=== PATIENT | female | born 1955 | race Caucasian/White ===

== ENCOUNTER 2019-10-24 07:14 | Outpatient (CLI) | payer OTHER ==
[2019-10-24 14:04] LABS: #Eosinphils 0.1 thou/uL (0.0-0.7); #Lymphocytes 2.3 thou/uL (1.20-3.40); #Monocytes 0.5 thou/uL (0.11-0.59); #Neutrophils 5.6 thou/uL (1.40-6.50); %Basophils 0.5 % (0.0-1.0); %Eosinophils 1.5 % (0.0-10.0); %Lymphocytes 26.6 % (21.0-51.0); %Monocytes 6.1 % (0.0-10.0); %Neutrophils 65.3 % (42.0-75.0); Hemoglobin 13.8 g/dL (12.0-16.0); Mean Corpuscular HGB CONC 33.8 g/dL (32.0-36.0); Mean Corpuscular Hemoglobin 32.1 pg (27.0-31.0); Mean Corpuscular Volume 94.7 fL (78.0-98.0); Mean Platelet Volume 7.8 fL (7.4-10.4); Platelet Count 287 thou/uL (130-400); White Blood Cell (WBC) Count 8.6 thou/uL (4.8-10.8)
[2019-10-24 14:12] LABS: Anion Gap 15 mmol/L (10-20); BUN (Urea Nitrogen) 10 mg/dL (9.8-20.1); Calc. Creatinine Clearance 0 mL/min (70-130); Calcium 9.9 mg/dL (7.8-10.44); Carbon Dioxide 26 mmol/L (23-31); Chloride 103 mmol/L (98-107); Estimated GFR-MDRD Greater than 90; Glucose 103 mg/dL (80-115); Potassium 4.5 mmol/L (3.5-5.1); Sodium 139 mmol/L (136-145)
[2019-10-24 14:20] LABS: Bacteria/HPF None Seen HPF (None Seen); Bilirubin Negative (Negative); Blood, Urine Negative (Negative); Clarity Clear (Clear); Glucose, Urine (Dipstick) Normal (Negative); Leukocyte Negative Leu/uL (Negative); Nitrite Negative (Negative); Protein, Urine (Dipstick) Negative (Neg-Trace); RBC/HPF 0-3 HPF (0-3); Squamous Epithelial None Seen HPF (0-3); Urobilinogen Normal mg/dL (Less than 2); WBC/HPF None Seen HPF (0-3)
[2019-10-24 14:26] LABS: Prothrombin Time 13.4 sec (12.0-14.7)
[2019-10-25 11:34] LABS: SARS-CoV-2 MS2 Positive; SARS-CoV-2 N Gene Negative; SARS-CoV-2 S Gene Negative; SARS-CoV-2 orf1ab Negative
== END 2019-10-24 07:15 | disposition home or self-care (01) ==
LOC: LABBT 07:14
PROVIDERS: ATTEND Orthopaedic Surgery
DX: Z01.818 Encounter for other preprocedural examination (principal); Z11.59 Encounter for screening for other viral diseases; T84.018A Broken internal joint prosthesis, other site, initial encounter
CPT/HCPCS: 80048; 81001; 85025; 85610; 87635; U0003

== ENCOUNTER 2019-10-24 11:15 | Inpatient (IN) | payer OTHER ==
[2019-10-23 12:41] VITALS: BMI 32.2
[2019-10-28] MEDS ORDERED: Sodium Chloride 0.9% 100 ML ONE (08:08)
[2019-10-28] MEDS ORDERED: Vancomycin 1 GM/200 ML BAG ONE (08:08)
[2019-10-28] MEDS ORDERED: Tranexamic Acid 1,000 MG/10 ML VIAL ONE (08:08)
[2019-10-28] MEDS ORDERED: Fentanyl 100 MCG/2 ML VIAL ONE ×2 (09:14→10:35)
[2019-10-28] MEDS ORDERED: Midazolam HCl 2 mg/2 ml Vial ONE (09:14)
[2019-10-28] MEDS ORDERED: Glycopyrrolate 0.2 MG/ML 5 ML SYRINGE ONE (10:04)
[2019-10-28] MEDS ORDERED: EPHEDRINE 25 MG/5 ML SYRINGE ONE (10:04)
[2019-10-28] MEDS ORDERED: Succinylcholine Chloride 20 MG/ML 10 ml SYRINGE FS ONE (10:04)
[2019-10-28] MEDS ORDERED: Ropivacaine 0.2% HCl/PF (40 MG/20 ML VIAL) ONE (10:04)
[2019-10-28] MEDS ORDERED: Dexamethasone 20 MG/5 ML VIAL ONE (10:04)
[2019-10-28] MEDS ORDERED: PHENYLEPHRINE-NS 100 MCG/ML 10 ML SYRINGE ONE (10:04)
[2019-10-28] MEDS ORDERED: Ondansetron PF 4 MG/2 ML Vial ONE (10:04)
[2019-10-28] MEDS ORDERED: Bupivacaine HCl 0.5%/Epinephrine 1:200,000/PF 30 ml Vial ONE (10:04)
[2019-10-28] MEDS ORDERED: PROPOFOL 200 MG/20 ML VIAL ONE (10:04)
[2019-10-28] MEDS ORDERED: Zolpidem Tartrate 5 MG TAB PO PRN ×2 (10:38→10:49)
[2019-10-28] MEDS ORDERED: HYDROcodone/Acetaminophen 10/325 mg Tablet PO PRN ×2 (10:38)
[2019-10-28] MEDS ORDERED: Ropivacaine HCl/PF 250 ML in Premix Bag 1 BAG NERVE BLCK SCH (10:38)
[2019-10-28] MEDS ORDERED: Promethazine HCl 25 MG/ML VIAL IM PRN ×3 (10:38→13:15)
[2019-10-28] MEDS ORDERED: traMADol HCl 50 MG TAB PO PRN (10:38)
[2019-10-28] MEDS ORDERED: Fentanyl 100 MCG/2 ML VIAL SLOW IVP PRN (10:39)
[2019-10-28] MEDS ORDERED: Ondansetron PF 4 MG/2 ML Vial IVP PRN (10:49)
[2019-10-28] MEDS ORDERED: diphenhydrAMINE 25 MG CAP PO PRN (10:49)
[2019-10-28] MEDS ORDERED: Acetaminophen 325 MG TAB PO PRN (10:49)
[2019-10-28] MEDS ORDERED: Promethazine HCl 25 MG/ML VIAL SLOW IVP PRN (13:15)
[2019-10-28] MEDS ORDERED: Ondansetron HCl/PF 4 MG/2 ML Vial IVP PRN (13:15)
[2019-10-28] MEDS ORDERED: Ketorolac Tromethamine 30 MG/ML VIAL IVP PRN (13:15)
--- NOTE | 2019-10-28 15:23 | RAD ---
XR Knee Rt 2 View: 10/28/2019 10:50 AM CLINICAL INDICATION: Right total knee prosthesis COMPARISON: Radiographs dated October 08, 2019 FINDINGS: Bones: No acute fracture is demonstrated. Joints: Since the comparison examination there has been revision of the right total knee prosthesis. There is been interval placement of a constrained right total knee prosthetic components. The prosthetic components project in the expected position. There are scattered intra-articular and peria rticular soft tissue gas. Small amount of Omnipaque material is seen within the posterior aspect of the right knee joint possibly related to prior polymethylmethacrylate. This was present on the compar rosa maria exam. Soft Tissue: There is soft tissue swelling involving the right knee.. IMPRESSION: Postoperative right knee.
[2019-10-28] MEDS: Ketorolac Tromethamine 30 MG/ML VIAL IVP SCH ×2 (15:24→21:24)
[2019-10-28] MEDS: Sodium Chloride 0.9% 1,000 ML IV SCH ×2 (15:25→20:59)
[2019-10-28] MEDS: CEFAZOLIN 2 GM in Premix Bag 1 BAG IVPB SCH ×2 (15:25→23:17)
[2019-10-28] MEDS: Ferrous Gluconate 324 MG TAB PO SCH (20:58)
[2019-10-28] MEDS: Senokot S 8.6-50 MG TAB PO SCH (20:59)
[2019-10-28] MEDS: Aspirin 81 mg Enteric Coated Tablet PO SCH (21:24)
--- NOTE | 2019-10-29 01:48 | CON ---
DATE OF CONSULTATION: 10/28/2019 TIME OF ASSESSMENT: 1800 hours. REASON FOR CONSULTATION: Medical management. HISTORY OF PRESENT ILLNESS: Ms. Rodriguez is a 63-year-old woman, who is status post a total right knee replacement done earlier today, who has been referred for medical management. The patient has a history of anxiety and depression. She is otherwise healthy and without any other comorbidities. She states she has been feeling well since her surgery. She is currently eating dinner and denies having any nausea or vomiting. No abdominal pain. Has not had any chest pain, palpitations, or shortness of breath. Denies any recent fevers, chills, or sweats. Overall, she states she feels very good. Her pain is under good control. REVIEW OF SYSTEMS: All other review of systems are negative. PAST MEDICAL HISTORY: 1. Anxiety. 2. Depression. SURGICAL HISTORY: 1. Left knee replacement in January 2017. 2. Right knee replacement in 2003. 3. Colonoscopy in March 2019. 4. Total right knee replacement earlier today, October 2019. FAMILY HISTORY: Her father was diagnosed with a stroke and is . Her mother is alive and has diabetes. SOCIAL HISTORY: The patient denies any tobacco use, alcohol consumption, or illicit drug use. ALLERGIES: NO KNOWN DRUG ALLERGIES. CURRENT MEDICATIONS: 1. Naproxen. 2. Tylenol. 3. Venlafaxine. PHYSICAL EXAMINATION: GENERAL: The patient appears well developed, well nourished, is in no acute distress. VITAL SIGNS: Temperature 97.9, pulse 99, respirations 18, O2 saturation 97% on room air, and blood pressure 108/70. HEENT: Normocephalic and atraumatic. Pupils are equal, round, and reactive to light. Sclerae without icterus. Oropharynx is clear. NECK: Supple. No lymphadenopathy. LUNGS: Clear to auscultation bilaterally without wheezes, rales, or rhonchi. CARDIAC: Regular rate and rhythm without audible murmurs, rubs, or gallops. ABDOMEN: Soft, nontender, nondistended. Normoactive bowel sounds present. No guarding or rigidity. No renal angle tenderness. EXTREMITIES: No lower leg edema. Dressing in place to the right lower extremity. Mechanical SCDs in place. NEUROLOGIC: Alert and oriented x3. SKIN: Warm and dry. LABORATORY DATA: Done on October 24, 2019, showed a normal full blood count. CMP also unremarkable. Urinalysis done that day was negative. She had COVID testing, which was also negative. Preoperative EKG showed normal sinus rhythm. IMAGING DATA: X-ray done today showed a postoperative right knee with some soft tissue swelling over the right knee, but otherwise unremarkable. IMPRESSION AND PLAN: Ms. Rodriguez is a 63-year-old woman, who is status post a total right knee replacement, referred for medical management. The patient has a history of anxiety and depression with no other comorbidities. She has had her medications reconciled already, which include venlafaxine. The patient without any complaints at this present time. Vital signs are notable for slightly low blood pressure at 108/70. She has fluids going at 100 mL an hour. Continue to monitor blood pressure. We will obtain repeat laboratory studies in the morning. No further interventions indicated at this time. Thank you for this consultation. Job ID: [id number]
[2019-10-29] MEDS: Ketorolac Tromethamine 30 MG/ML VIAL IVP SCH ×3 (05:05→20:44)
[2019-10-29 06:04] LABS: #Lymphocytes 1.5 thou/uL (1.20-3.40); #Monocytes 0.6 thou/uL (0.11-0.59); #Neutrophils 10.1 thou/uL (1.40-6.50); %Basophils 0.2 % (0.0-1.0); %Eosinophils 0.1 % (0.0-10.0); %Lymphocytes 12.2 % (21.0-51.0); %Monocytes 5.2 % (0.0-10.0); %Neutrophils 82.2 % (42.0-75.0); Mean Corpuscular HGB CONC 34.6 g/dL (32.0-36.0); Mean Corpuscular Hemoglobin 32.3 pg (27.0-31.0); Mean Corpuscular Volume 93.3 fL (78.0-98.0); Mean Platelet Volume 7.3 fL (7.4-10.4); Platelet Count 257 thou/uL (130-400); RBC Distribution Width 11.5 % (11.5-14.5); Red Blood Cell (RBC) Count 3.41 mill/uL (4.20-5.40); White Blood Cell (WBC) Count 12.3 thou/uL (4.8-10.8)
[2019-10-29 06:18] LABS: Anion Gap 11 mmol/L (10-20); BUN (Urea Nitrogen) 9 mg/dL (9.8-20.1); Calc. Creatinine Clearance 111 mL/min (70-130); Calcium 8.6 mg/dL (7.8-10.44); Carbon Dioxide 27 mmol/L (23-31); Chloride 101 mmol/L (98-107); Estimated GFR-MDRD Greater than 90; Glucose 112 mg/dL (80-115); Potassium 4.3 mmol/L (3.5-5.1); Sodium 135 mmol/L (136-145)
--- NOTE | 2019-10-29 07:46 | OP ---
DATE OF PROCEDURE: 10/28/2019 PREOPERATIVE DIAGNOSIS: Failed right total knee. POSTOPERATIVE DIAGNOSIS: Failed right total knee. PROCEDURE PERFORMED: Right revision total knee arthroplasty using a [employer] Triathlon Revision femur system, size 2 femur with a 9-mm wide by 100-mm long uncemented stem, two distal 5-mm buildups, and a posterior lateral 5-mm buildup on the tibia side, a size 1 tibia with a 9-mm stem, no buildups, small cement plug. CLOTH COVERED HELMET PULLER: Ricardo Chen MD BLOOD LOSS: Minimal. SPECIMENS: None. DRAINS: None. COMPLICATIONS: None. TOURNIQUET TIME: 108 minutes. DESCRIPTION OF PROCEDURE: The patient was taken to the operating room where general anesthesia was induced. Right leg was prepped and draped in sterile fashion. After exsanguination, tourniquet inflated to 300 mmHg. I opened up the old scar. Dissection carried down to the retinaculum. I performed a medial parapatellar arthrotomy. I performed a complete synovectomy. I carefully cleaned out the gutters in the posterior aspect of the knee and the lateral pouch lateral to the patella. The femur was removed with an oscillating saw with excellent bone preservation. The tibia was loosened. There was significant wear on the tibia. I was able to remove the tibia fairly easily and removed cement and then made a very modest clean-up cut, only a few millimeters. Metaphyseal bone was of very poor quality and very soft and it was therefore elected to use 100-mm cemented stem to get extra purchase proximally. I sized and reamed for the tibia and placed the tibial trial and then used the cutting block trials to size the femur and ended up with a 16-mm polyethylene, which gave good flexion and extension stability. The femur was pinned and cut. Implants were assembled on the back table. Irrigation performed and the bone was dried. Implants were cemented into place. Extraneous cement was removed. Irrigation performed again. The retinaculum was repaired with #2 Vicryl and #2 Quill, subcu closed with 0 Quill, skin was closed with 2-0 Monocryl, and skin glue and sterile dressings were applied. Job ID: [id number]
[2019-10-29] MEDS ORDERED: Sodium Chloride 0.9% 1,000 ML IV SCH ×3 (08:00→20:40)
[2019-10-29] MEDS: Sodium Chloride 0.9% 1,000 ML IV SCH ×3 (08:17→15:07)
[2019-10-29] MEDS: Senokot S 8.6-50 MG TAB PO SCH ×2 (08:25→20:46)
[2019-10-29] MEDS: Aspirin 81 mg Enteric Coated Tablet PO SCH ×2 (08:25→20:46)
[2019-10-29] MEDS: Ferrous Gluconate 324 MG TAB PO SCH ×2 (08:25→20:45)
[2019-10-29] MEDS ORDERED: Multivitamin W/ Minerals 1 TAB PO SCH (09:00)
[2019-10-29] MEDS ORDERED: Cosyntropin 250 MCG VIAL SLOW IVP SCH (10:00)
[2019-10-29 14:16] LABS: Troponin I Less than 0.010 ng/mL (< 0.028)
--- NOTE | 2019-10-29 15:01 | PRG ---
DATE OF SERVICE: 10/29/2019 PRIMARY CARE PHYSICIAN: Dr. Fang. SUBJECTIVE: A 63-year-old female underwent right revision total knee arthroplasty yesterday without any complication. This morning, the patient was found to have hypotension on standing. Her blood pressure dropped to 68/41 from 92/63. The patient was symptomatic at this time. No chest pain, shortness of breath, palpitations, fever, or chills reported. REVIEW OF SYSTEMS: All other review of systems was reviewed and was found negative. CURRENT MEDICATIONS: Reviewed. Preoperative EKG by my review showed sinus rhythm. OBJECTIVE: VITAL SIGNS: Temperature 97.7, pulse of 74, respirations of 16, blood pressure as discussed above. GENERAL: A 63-year-old female, in no apparent distress. Pain controlled. LUNGS: Clear to auscultation bilaterally. No wheezing, rales, or rhonchi. HEART: S1 and S2 present. Regular. ABDOMEN: Soft. Bowel sounds present. EXTREMITIES: No calf tenderness. NEUROLOGIC: Grossly nonfocal. PSYCHIATRY: Alert, awake, and oriented x3. LABORATORY FINDINGS: WBC 12.3 with hemoglobin 11, hematocrit 31.9, platelet of 82. Chemistry showed sodium 135, potassium 4.3, chloride 101, bicarb 27, BUN of 9, creatinine 0.62. Cortisol level was less than 1. TSH was 0.28. Troponin was negative. IMPRESSION: 1. Orthostatic hypotension, suspected due to adrenal insufficiency. 2. Hyponatremia. 3. Anxiety. 4. Depression without any suicidal ideation. 5. Obesity with a BMI of 32.2. PLAN: Cosyntropin test will be obtained. We will continue venlafaxine. Continue aspirin for DVT prophylaxis. We will recheck labs in a.m. Fall precaution. The patient was extensively counseled on the above. She was advised to follow up with cooler deliverer as outpatient. We will continue IV hydration. She received 2 L of normal saline bolus. Job ID: [id number]
[2019-10-29] MEDS ORDERED: Simethicone Chewable 80 MG TAB PO PRN (17:37)
[2019-10-29] MEDS ORDERED: Mag-Al 1200 mg/1200 mg/30 ML UDCUP PO PRN (17:39)
[2019-10-29] MEDS: Ondansetron PF 4 MG/2 ML Vial IVP PRN (19:18)
[2019-10-29] MEDS: traMADol HCl 50 MG TAB PO PRN (20:45)
[2019-10-30] MEDS: traMADol HCl 50 MG TAB PO PRN ×2 (04:57→09:16)
[2019-10-30] MEDS: Ketorolac Tromethamine 30 MG/ML VIAL IVP SCH ×2 (04:58→14:00)
[2019-10-30 05:53] LABS: Hemoglobin 9.9 g/dL (12.0-16.0); Mean Corpuscular HGB CONC 33.6 g/dL (32.0-36.0); Mean Corpuscular Hemoglobin 31.4 pg (27.0-31.0); Mean Corpuscular Volume 93.5 fL (78.0-98.0); Mean Platelet Volume 7.2 fL (7.4-10.4); Platelet Count 225 thou/uL (130-400); RBC Distribution Width 11.7 % (11.5-14.5); Red Blood Cell (RBC) Count 3.15 mill/uL (4.20-5.40); White Blood Cell (WBC) Count 11.2 thou/uL (4.8-10.8)
[2019-10-30 06:21] LABS: ALT (SGPT) 26 U/L (8-55); AST (SGOT) 26 U/L (5-34); Albumin 3.2 g/dL (3.4-4.8); Alkaline Phosphatase 57 U/L (40-110); Anion Gap 10 mmol/L (10-20); BUN (Urea Nitrogen) 9 mg/dL (9.8-20.1); Bilirubin, Total 0.2 mg/dL (0.2-1.2); Calc. Creatinine Clearance 125 mL/min (70-130); Calcium 7.6 mg/dL (7.8-10.44); Carbon Dioxide 25 mmol/L (23-31); Chloride 105 mmol/L (98-107); Estimated GFR-MDRD Greater than 90; Globulin 2.5 g/dL (2.4-3.5); Glucose 116 mg/dL (80-115); Magnesium 1.9 mg/dL (1.6-2.6); Potassium 3.8 mmol/L (3.5-5.1); Protein, Total 5.7 g/dL (6.0-8.3); Sodium 136 mmol/L (136-145)
[2019-10-30] MEDS ORDERED: Multivit, Therapeutic 1 TAB PO SCH (09:00)
[2019-10-30] MEDS: Aspirin 81 mg Enteric Coated Tablet PO SCH (09:06)
[2019-10-30] MEDS: Ferrous Gluconate 324 MG TAB PO SCH (09:07)
[2019-10-30] MEDS: Senokot S 8.6-50 MG TAB PO SCH (09:07)
[2019-10-30] MEDS: Ondansetron PF 4 MG/2 ML Vial IVP PRN (10:42)
[2019-10-30 11:07] VITALS: TEMP 98.4
[2019-10-30 11:21] VITALS: BP 182/71
--- NOTE | 2019-10-30 11:40 | PDOC.HOSPP ---
- Subjective Encounter Date: 10/30/19 Encounter Time: 11:30 Subjective: Patient seen and examined for hypotension. BP improving. No CP/SOB. No new complaints. No overnight events - Objective Vital Signs & Weight: Vital Signs (12 hours) Temp Pulse Pulse Pulse Resp BP BP 10/30/19 11:03 98.4 F 83 14 10/30/19 09:54 88 10/30/19 09:40 88 86 182/71 H 142/90 H 10/30/19 08:00 10/30/19 07:31 98.2 F 89 14 10/30/19 04:44 98.4 F 90 16 10/29/19 23:42 97.9 F 83 16 BP BP BP Pulse Ox 10/30/19 11:03 126/77 94 L 10/30/19 09:54 142/90 H 121/79 183/71 H 10/30/19 09:40 10/30/19 08:00 94 L 10/30/19 07:31 118/74 94 L 10/30/19 04:44 124/75 94 L 10/29/19 23:42 118/73 92 L Weight Admit Weight 165 lb Weight 165 lb I&O: 10/29/19 10/30/19 10/31/19 06:59 06:59 06:59 Intake Total 340 4610 Output Total 300 2675 Balance 40 1935 Result Diagrams: 10/30/19 05:43 10/30/19 05:43 Hospitalist ROS - Review of Systems Respiratory: denies: cough, dry, shortness of breath, hemoptysis, SOB with excertion, pleuritic pain, sputum, wheezing, other Cardiovascular: denies: chest pain, palpitations, orthopnea, paroxysmal noc. dyspnea, edema, light headedness, other - Medication Medications: Active Medications Generic Name Dose Route Start Last Admin Trade Name Freq PRN Reason Stop Dose Admin Acetaminophen 650 mg 10/28/19 10:49 10/29/19 09:43 Tylenol PO 650 mg Q4H PRN Administration Headache/Fever or Pain Aspirin 81 mg 10/28/19 21:00 10/30/19 09:06 Ecotrin PO 81 mg BID PHILIPP Administration Ferrous Gluconate 324 mg 10/28/19 21:00 10/30/19 09:07 Fergon PO 324 mg BID PHILIPP Administration Ropivacaine 250 ml/ Device 250 mls @ 10 mls/hr 10/28/19 10:38 10/29/19 13:43 NERVE BLCK 10/31/19 10:37 250 mls INF PHILIPP Administration Ketorolac Tromethamine 30 mg 10/28/19 14:00 10/30/19 04:58 Toradol IVP 10/30/19 14:01 30 mg Q8HR PHILIPP Administration Multivitamins 1 tab 10/30/19 09:00 10/30/19 09:07 Theragran PO 1 tab DAILY PHILIPP Administration Ondansetron HCl 4 mg 10/28/19 10:38 10/30/19 10:42 Zofran IVP 4 mg Q6H PRN Administration Nausea/Vomiting Pantoprazole Sodium 40 mg 10/28/19 21:00 10/29/19 17:42 Protonix PO Not Given HS COUNTS INCLUDE 234 BEDS AT THE [facility] Senna/Docusate Sodium 2 tab 10/28/19 21:00 10/30/19 09:07 Senokot S PO 2 tab BID PHILIPP Administration Simethicone 80 mg 10/29/19 17:37 10/29/19 20:46 Mylicon Chewable PO 80 mg PCHS PRN Administration Gas Pain Tramadol HCl 50 mg 10/28/19 10:38 10/29/19 09:40 Ultram PO 50 mg Q6H PRN Administration Mild Pain (1-3) Tramadol HCl 100 mg 10/28/19 10:38 10/30/19 09:16 Ultram PO 100 mg Q6H PRN Administration Moderate Pain 4-6 Venlafaxine HCl 75 mg 10/28/19 21:00 10/29/19 20:45 Effexor PO 75 mg HS PHILIPP Administration - Exam General Appearance: NAD Heart: RRR, no gallops Respiratory: no wheezes, no ronchi Gastrointestinal: non-tender, non-distended, normal bowel sounds Extremities: no cyanosis, no clubbing Neurological: no new deficit Hosp A/P - Plan DVT proph w/SCDs Orthostatic hypotension, suspected due to volume depletion with relative adrenal insufficiency. Hyponatremia. Anxiety/Depression -venlafaxine Obesity BMI of 32.2. PLAN: Cosyntropin test reviewed DC IVF Will consider PO steroids if BP remains low Recheck Orthostatic today Cont other meds as above Endocrine f/u as outpt
--- NOTE | 2019-10-31 13:18 | DIS ---
DATE OF ADMISSION: 10/28/2019 DATE OF DISCHARGE: 10/30/2019 This is Fay Mcelroy PA-C dictating a report for Valente Gu MD. PREOPERATIVE DIAGNOSIS: Failed right total knee. POSTOPERATIVE DIAGNOSIS: Failed right total knee. PROCEDURE PERFORMED: Right revision total knee arthroplasty. CONSULTANTS ON THE CASE: Include [facility] and [facility]. BRIEF HOSPITAL COURSE: This is a 63-year-old female who was indicated for the above-mentioned procedure. She tolerated it well. Postoperatively, she was admitted to [facility] on [address] Here, she worked with physical and occupational therapist. Her pain was controlled by the [facility]. Her underlying medical conditions were handled by the Hospitalist Group. She was up and out of bed on the day of surgery. She started to increase her mobility by postoperative day #1 and by postoperative day #2, she was ready to be discharged home with family. DISCHARGE CONDITION: Stable. DISCHARGE INSTRUCTIONS: The patient will follow up with Dr. Gu as scheduled. She will follow up with outpatient physical therapy as scheduled. She will keep her surgical site clean, dry, and intact. DISCHARGE MEDICATIONS: See MAR. Job ID: [id number]
== END 2019-10-30 15:00 | disposition home or self-care (01) | DRG 467 ==
LOC: SURG A 10-28 07:45 → SURG B 10-28 14:52
PROVIDERS: ADMIT Orthopaedic Surgery; ATTEND Orthopaedic Surgery
PROC: 0SPC0JZ Removal of Synthetic Substitute from Right Knee Joint, Open Approach (ICD-10-PCS; principal; 2019-10-28)
PROC: 0SRC0J9 Replacement of Right Knee Joint with Synthetic Substitute, Cemented, Open Approach (ICD-10-PCS; 2019-10-28)
DX: T84.012A Broken internal right knee prosthesis, initial encounter (principal); E87.1 Hypo-osmolality and hyponatremia; E27.40 Unspecified adrenocortical insufficiency; Y83.1 Surgical operation with implant of artificial internal device as the cause of abnormal reaction of the patient, or of later complication, without mention of misadventure at the time of the procedure; F41.9 Anxiety disorder, unspecified; F32.9 Major depressive disorder, single episode, unspecified; Z96.652 Presence of left artificial knee joint; I95.1 Orthostatic hypotension; E66.9 Obesity, unspecified; E86.9 Volume depletion, unspecified; Z68.32 Body mass index [BMI] 32.0-32.9, adult
CPT/HCPCS: 36415; 80048; 80053; 80400; 82533; 83735; 84439; 84443; 84484; 85027; C1713; J0670; J0690; J0834; J1100; J1885; J2250; J2405; J2704; J2795; J3010; J3370; J3490